=== PATIENT | female | born 1990 | race Two or more races ===

== ENCOUNTER 2020-01-09 07:00 | Inpatient (IN) | payer OTHER ==
[~2020-01-09] VITALS: Ht 167.6 cm; Wt 68.0 kg
== END 2020-01-19 17:39 | disposition home or self-care (01) | DRG 743 ==
LOC: SURH 01-16 07:00 → SURG-SUITE 01-16 11:00 → O/R 01-16 11:00 → SURG-SUITE 01-16 18:55
PROVIDERS: ADMIT Obstetrics & Gynecology; ATTEND Obstetrics & Gynecology
PROC: 0UB10ZZ Excision of Left Ovary, Open Approach (ICD-10-PCS; principal; 2020-01-16 09:30)
DX: D27.1 Benign neoplasm of left ovary (principal); K59.09 Other constipation

== ENCOUNTER 2020-09-11 10:02 | Outpatient (CLI) | payer OTHER | END 2020-09-11 10:07 | disposition home or self-care (01) | LOC: SONOGRAMA 10:02 → RX STUDY 10:45 | PROVIDERS: ATTEND Obstetrics & Gynecology | DX: N93.8 Other specified abnormal uterine and vaginal bleeding (principal) ==

== ENCOUNTER 2023-02-21 07:40 | Day surgery (SDC) | payer OTHER ==
[~2023-02-21] VITALS: Ht 170.2 cm; Wt 68.0 kg
[~2023-02-21 07:40] MED LIST: STELARA90 MG/1 ML
[2023-02-21] MEDS ORDERED: NEURONTIN300 MG PO (11:30)
[2023-02-21] MEDS ORDERED: TRAM1TAB98 PO (11:30)
== END 2023-02-21 15:40 | disposition home or self-care (01) ==
LOC: CIR.AMB 07:40
PROVIDERS: ATTEND Surgery
DX: K60.5 Anorectal fistula (principal); N82.3 Fistula of vagina to large intestine; Z88.0 Allergy status to penicillin; Z20.822 Contact with and (suspected) exposure to COVID-19; I10 Essential (primary) hypertension

== ENCOUNTER 2023-02-28 09:27 | Outpatient (CLI) | payer OTHER ==
[~2023-02-28 09:27] MED LIST changes: +NEURONTIN300 MG PO; +TRAM1TAB98 PO
== END 2023-02-28 09:40 | disposition home or self-care (01) ==
LOC: RX STUDY 09:27
PROVIDERS: ATTEND Surgery
DX: K50.114 Crohn's disease of large intestine with abscess (principal); K50.013 Crohn's disease of small intestine with fistula; N82.3 Fistula of vagina to large intestine

== ENCOUNTER 2024-05-02 06:15 | Day surgery (SDC) | payer OTHER ==
[2024-04-26 14:21] VITALS: BP 110/78
[~2024-05-02] VITALS: Ht 170.2 cm; Wt 77.1 kg
[2024-05-02] MEDS ORDERED: DIBUCAINE 30 GM TUBE ONE (07:15)
[2024-05-02] MEDS ORDERED: HEMOSTATIC MATRIX 1 KIT KIT TOP ONE (07:15)
[2024-05-02] MEDS ORDERED: POVIDONE-IODINE 118 ML BOTT TOP ONE (07:15)
[2024-05-02] MEDS ORDERED: BUPIVACAINE HCL/MPF 0.5% 30ML VIAL ONE (07:16)
[2024-05-02] MEDS ORDERED: METRONIDAZOLE/SODIUM CHLORIDE 500 MG/100 ML PIGGYBACK IV ONE (07:16)
[2024-05-02] MEDS ORDERED: LIDOCAINE HCL 1%/EPINEPHRINE 20ML VIAL IJ ONE (07:16)
[2024-05-02] MEDS ORDERED: CEFTRIAXONE SODIUM 2,000 MG VIAL ONE (07:16)
[2024-05-02] MEDS ORDERED: SUGAMMADEX SODIUM 200 MG/2 ML VIAL IV ONE (09:52)
[2024-05-02] MEDS ORDERED: NEURONTIN300 MG PO (11:24)
[2024-05-02] MEDS ORDERED: TRAM1TAB98 PO (11:24)
[2024-05-02] MEDS ORDERED: INTESTINEX680 M1 PO (11:24)
[2024-05-02] MEDS ORDERED: MORPHINE SULFATE 4 MG/ML VIAL IV ONE (12:10)
== END 2024-05-02 13:10 | disposition home or self-care (01) ==
LOC: CIR.AMB 06:15
PROVIDERS: ATTEND Surgery
DX: K60.30 Anal fistula, unspecified (principal); K60.50 Anorectal fistula, unspecified; K50.013 Crohn's disease of small intestine with fistula; K62.4 Stenosis of anus and rectum; N82.3 Fistula of vagina to large intestine; Z88.6 Allergy status to analgesic agent

== ENCOUNTER 2024-08-04 13:28 | Inpatient (IN) | payer OTHER ==
[~2024-08-04] VITALS: Ht 170.2 cm; Wt 72.6 kg
[~2024-08-04 13:28] MED LIST changes: +INTESTINEX680 M1 PO
--- NOTE | 2024-08-04 13:47 | NUR ---
SE RECIBE PTE ALERTA, ORIENTADA X3 Y AMBULANDO. PTE PRESENTA REFERIDO POR WILLIAM TIM PARA OBSERVACION POR ABCESO PERIANAL. PTE REFIERE JOSE DOLOR. SE MIDEN S/V Y SE UBICA.
[2024-08-04] MEDS ORDERED: PIPERACILLIN/TAZOBACTAM SODIUM 3.375 GM in 0.9 % SODIUM CHLORIDE 100 ML IV SCH (14:30)
[2024-08-04] MEDS ORDERED: MORPHINE SULFATE 4 MG/ML VIAL IV PRN (14:30)
[2024-08-04] MEDS ORDERED: ONDANSETRON HCL 2 MG/ML VIAL IV PRN (14:30)
[2024-08-04] MEDS ORDERED: RINGERS SOLUTION,LACTATED 1,000 ML IV SCH (14:30)
[2024-08-04] MEDS ORDERED: HYOSCYAMINE SULFATE 0.125 MG TAB.SUBL SL PRN (14:30)
[2024-08-04] MEDS ORDERED: PIPERACILLIN/TAZOBACTAM SODIUM 3.375 GM VIAL IV ONE (15:27)
[2024-08-04 15:30] LABS: BASO % 0.3 % (0.1-1.2); EOS # 0.02 (0.04-0.54); EOS % 0.2 % (0.7-7.0); LYMPH # 1.71 (1.18-3.74); LYMPH % 14.0 % (19.3-53.1); MEAN PLATELET VOLUME 10.70 fl (9.4-12.4); MONO # 0.84 (0.24-0.82); MONO % 6.9 % (4.7-12.5); NEUT # 9.56 (1.56-6.13); NEUT % 78.1 % (34.0-71.1); RED CELL DISTRIBUTION WIDTH 13.4 % (11.6-14.4)
[2024-08-04 15:45] LABS: INR 1.08
[2024-08-04 15:51] VITALS: BP 109/71; O2SAT 99
[2024-08-04 16:01] LABS: ALT/SGPT 10.0 U/L (12-78); AST/SGOT 8.0 U/L (15-37); BILIRUBIN TOTAL 0.53 mg/dL (0.3-1.2); BUN CREA RATIO 10.0 (7.0-25.0); CREATININE SERUM 0.62 mg/dL (0.55-1.02); GFR 109.54; GLOBULINA 4.4 G/DL (2.4-3.5); GLUCOSE FASTING 96.0 mg/dL (65-100); OSMOLALITY SERUM 275.0 MOSM/KG (275-295)
[2024-08-04] MEDS ORDERED: FOLIC ACID 1 MG TABLET PO NR (17:00)
[2024-08-04] MEDS ORDERED: Cyanocobalamin/Mecobalamin 1 TAB.SL SL NR (17:00)
[2024-08-04] MEDS ORDERED: SOD FERRIC GLUC COMPLX/SUCROSE 62.5 MG in 0.9 % SODIUM CHLORIDE 50 ML IV SCH (17:00)
[2024-08-04 20:00] VITALS: BP 109/70; O2SAT 97
[2024-08-04] MEDS ORDERED: ACETAMINOPHEN 500 MG GEL..CAP PO PRN (20:30)
[2024-08-04] MEDS ORDERED: CEFTRIAXONE SODIUM 2,000 MG VIAL ONE (23:57)
[2024-08-05] MEDS ORDERED: CEFTRIAXONE SODIUM 2,000 MG in 0.9 % SODIUM CHLORIDE 50 ML IV ONE
[2024-08-05 00:44] VITALS: BP 95/56; O2SAT 100
[2024-08-05] MEDS ORDERED: DIBUCAINE 30 GM TUBE ONE (06:55)
[2024-08-05] MEDS ORDERED: BUPIVACAINE HCL/MPF 0.5% 30ML VIAL ONE (06:55)
[2024-08-05] MEDS ORDERED: LIDOCAINE HCL 1%/EPINEPHRINE 20ML VIAL IJ ONE (06:56)
[2024-08-05] MEDS ORDERED: POVIDONE-IODINE 118 ML BOTT TOP ONE (06:56)
[2024-08-05] MEDS ORDERED: HEMOSTATIC MATRIX 1 KIT KIT TOP ONE (06:57)
[2024-08-05 08:29] VITALS: BP 90/60; O2SAT 96
[2024-08-05] MEDS ORDERED: Cyanocobalamin/Mecobalamin 1 TAB.SL SL SCH (09:00)
[2024-08-05] MEDS ORDERED: FOLIC ACID 1 MG TABLET PO SCH (09:00)
[2024-08-05] MEDS ORDERED: PANTOPRAZOLE SODIUM 40 MG/VIAL VIAL IV SCH (09:00)
[2024-08-05] MEDS ORDERED: PIPERACILLIN/TAZOBACTAM SODIUM 3.375 GM VIAL IV ONE (10:00)
[2024-08-05] MEDS ORDERED: HYDROGEN PEROXIDE 473 ML BOTTLE TOP ONE (10:15)
[2024-08-05] MEDS ORDERED: SUGAMMADEX SODIUM 200 MG/2 ML VIAL IV ONE (10:56)
[2024-08-05] MEDS ORDERED: OxyCODONE HCL 5 MG TABLET (ROXICODONE) PO PRN (12:15)
[2024-08-05] MEDS ORDERED: MORPHINE SULFATE 4 MG/ML CARTRIDGE IV PRN (12:15)
[2024-08-05] MEDS ORDERED: SIMETHICONE 125 MG CAPSULE PO SCH (13:00)
[2024-08-05 13:57] VITALS: BP 91/58; O2SAT 97
[2024-08-05 16:49] VITALS: BP 91/60; O2SAT 96
[2024-08-05] MEDS ORDERED: AA 4.25%/CAL/LYTES/DEXT 5% 1,000 ML PERIFERAL SCH (17:00)
[2024-08-05 18:30] VITALS: BP 84/51; O2SAT 98
[2024-08-05 21:01] LABS: BASO % 0.6 % (0.1-1.2); EOS # 0.14 (0.04-0.54); EOS % 1.0 % (0.7-7.0); LYMPH # 1.34 (1.18-3.74); LYMPH % 9.7 % (19.3-53.1); MEAN PLATELET VOLUME 10.20 fl (9.4-12.4); MONO # 0.84 (0.24-0.82); MONO % 6.1 % (4.7-12.5); NEUT # 11.36 (1.56-6.13); NEUT % 82.2 % (34.0-71.1); RED CELL DISTRIBUTION WIDTH 13.2 % (11.6-14.4)
[2024-08-05 21:48] LABS: BUN CREA RATIO 7.0 (7.0-25.0); CHOL HDL RATIO 2.5 (0-5.0); CREATININE SERUM 0.6 mg/dL (0.55-1.02); GFR 113.76; GLUCOSE FASTING 187.0 mg/dL (65-100); HDL 42.0 mg/dl (40-60); LDL 51.0 mg/dl (0-130); OSMOLALITY SERUM 277.0 MOSM/KG (275-295); VLDL 10.0 (0-39)
[2024-08-05 21:56] VITALS: BP 86/56; O2SAT 97
[2024-08-05] MEDS ORDERED: POTASSIUM CHLORIDE IN WATER 40 MEQ/100 ML PIGGYBAG IV ONE (22:18)
[2024-08-05] MEDS ORDERED: POTASSIUM CHLORIDE IN WATER 40 MEQ/100 ML PIGGYBAG IV SCH (22:19)
[2024-08-06] MEDS ORDERED: POTASSIUM CHLORIDE IN WATER 40 MEQ/100 ML PIGGYBAG IV ONE (00:06)
[2024-08-06 00:57] VITALS: BP 92/61; O2SAT 97
[2024-08-06 06:10] LABS: BASO % 0.5 % (0.1-1.2); EOS # 0.17 (0.04-0.54); EOS % 1.9 % (0.7-7.0); LYMPH # 1.38 (1.18-3.74); LYMPH % 15.1 % (19.3-53.1); MEAN PLATELET VOLUME 10.70 fl (9.4-12.4); MONO # 0.78 (0.24-0.82); MONO % 8.5 % (4.7-12.5); NEUT # 6.72 (1.56-6.13); NEUT % 73.6 % (34.0-71.1); RED CELL DISTRIBUTION WIDTH 13.4 % (11.6-14.4)
[2024-08-06 06:39] LABS: BUN CREA RATIO 16.0 (7.0-25.0); CREATININE SERUM 0.38 mg/dL (0.55-1.02); GFR 192.72; GLUCOSE FASTING 106.0 mg/dL (65-100); OSMOLALITY SERUM 279.0 MOSM/KG (275-295)
[2024-08-06 08:05] VITALS: BP 94/61; O2SAT 97
[2024-08-06] MEDS ORDERED: LACTOBACILLUS ACIDOPHILUS 1 CAP CAP PO SCH (09:00)
[2024-08-06 10:38] LABS: BUN CREA RATIO 12.0 (7.0-25.0); CREATININE SERUM 0.49 mg/dL (0.55-1.02); GFR 143.72; GLUCOSE FASTING 100.0 mg/dL (65-100); OSMOLALITY SERUM 286.0 MOSM/KG (275-295)
[2024-08-06 12:39] LABS: BASO % 0.5 % (0.1-1.2); EOS # 0.19 (0.04-0.54); EOS % 2.1 % (0.7-7.0); LYMPH # 1.26 (1.18-3.74); LYMPH % 13.7 % (19.3-53.1); MEAN PLATELET VOLUME 10.00 fl (9.4-12.4); MONO # 0.77 (0.24-0.82); MONO % 8.4 % (4.7-12.5); NEUT # 6.87 (1.56-6.13); NEUT % 74.4 % (34.0-71.1); RED CELL DISTRIBUTION WIDTH 13.4 % (11.6-14.4)
[2024-08-06 16:34] VITALS: BP 95/67
[2024-08-06] MEDS ORDERED: ENOXAPARIN SODIUM 40 MG/0.4 ML SYRINGE SUBCUTANEO SCH (17:00)
[2024-08-06] MEDS ORDERED: VANCOMYCIN HCL 1,000 MG VIAL IV SCH (21:00)
[2024-08-07] VITALS: BP 82/56; O2SAT 98
[2024-08-07 04:00] VITALS: BP 80/51; O2SAT 100
[2024-08-07] MEDS ORDERED: VANCOMYCIN HCL 1,000 MG VIAL ONE ×2 (07:40→15:40)
[2024-08-07 08:39] VITALS: BP 91/63; O2SAT 99
[2024-08-07] MEDS ORDERED: ENOXAPARIN SODIUM 40 MG/0.4 ML SYRINGE SUBCUTANEO SCH (09:00)
[2024-08-07 16:19] VITALS: BP 94/65; O2SAT 99
[2024-08-07] MEDS ORDERED: OxyCODONE HCL 5 MG TABLET (ROXICODONE) PO PRN (22:45)
[2024-08-08 00:21] VITALS: BP 108/54; O2SAT 100
[2024-08-08] MEDS ORDERED: VANCOMYCIN HCL 1,000 MG VIAL ONE ×2 (06:16→15:53)
[2024-08-08 08:30] VITALS: BP 96/65; O2SAT 99
[2024-08-08] MEDS ORDERED: THIAMINE HCL 100 MG/ML 2 ML VIAL IV SCH (09:00)
[2024-08-08] MEDS ORDERED: VANCOMYCIN HCL 5 MG/ML REDILUIDO IV SCH (21:00)
[2024-08-08 23:22] VITALS: BP 96/68; O2SAT 98
[2024-08-09 01:44] VITALS: BP 94/59; O2SAT 94
[2024-08-09 07:38] LABS: BASO % 0.6 % (0.1-1.2); EOS # 0.22 (0.04-0.54); EOS % 2.6 % (0.7-7.0); LYMPH # 1.78 (1.18-3.74); LYMPH % 21.3 % (19.3-53.1); MEAN PLATELET VOLUME 10.20 fl (9.4-12.4); MONO # 0.74 (0.24-0.82); MONO % 8.9 % (4.7-12.5); NEUT # 5.49 (1.56-6.13); NEUT % 65.8 % (34.0-71.1); RED CELL DISTRIBUTION WIDTH 13.7 % (11.6-14.4)
[2024-08-09 08:06] LABS: BUN CREA RATIO 31.0 (7.0-25.0); CREATININE SERUM 0.39 mg/dL (0.55-1.02); GFR 187.02; GLUCOSE FASTING 83.0 mg/dL (65-100); OSMOLALITY SERUM 289.0 MOSM/KG (275-295)
[2024-08-09 09:22] VITALS: BP 113/79; O2SAT 96
[2024-08-09 16:15] VITALS: BP 113/77; O2SAT 95
[2024-08-10 01:03] VITALS: BP 94/63; O2SAT 96
[2024-08-10 08:31] VITALS: BP 94/60; O2SAT 98
[2024-08-11 07:30] VITALS: BP 93/60; O2SAT 97
[2024-08-11 16:00] VITALS: BP 95/62; O2SAT 96
[2024-08-11 17:22] LABS: BASO % 0.6 % (0.1-1.2); EOS # 0.22 (0.04-0.54); EOS % 2.3 % (0.7-7.0); LYMPH # 1.88 (1.18-3.74); LYMPH % 19.8 % (19.3-53.1); MEAN PLATELET VOLUME 9.80 fl (9.4-12.4); MONO # 0.63 (0.24-0.82); MONO % 6.6 % (4.7-12.5); NEUT # 6.61 (1.56-6.13); NEUT % 69.9 % (34.0-71.1); RED CELL DISTRIBUTION WIDTH 13.8 % (11.6-14.4)
[2024-08-12] VITALS: BP 93/61; O2SAT 98
[2024-08-12 08:00] VITALS: BP 85/58; O2SAT 97
[2024-08-12 09:27] LABS: INR 1.0
[2024-08-12 16:00] VITALS: BP 97/64; O2SAT 100
[2024-08-13 01:16] VITALS: BP 97/63; O2SAT 98
[2024-08-13 06:32] LABS: INR 1.0
[2024-08-13 06:39] LABS: BASO % 0.5 % (0.1-1.2); EOS # 0.24 (0.04-0.54); EOS % 3.0 % (0.7-7.0); LYMPH # 1.66 (1.18-3.74); LYMPH % 20.6 % (19.3-53.1); MEAN PLATELET VOLUME 10.00 fl (9.4-12.4); MONO # 0.69 (0.24-0.82); MONO % 8.6 % (4.7-12.5); NEUT # 5.34 (1.56-6.13); NEUT % 66.1 % (34.0-71.1); RED CELL DISTRIBUTION WIDTH 14.1 % (11.6-14.4)
[2024-08-13 06:47] LABS: ALT/SGPT 21 U/L (12-78); AST/SGOT 10 U/L (15-37); BILIRUBIN TOTAL 0.32 mg/dL (0.3-1.2); BILIRUBIN,CONJUGATED < 0.10 mg/dL (0.0-0.2); BUN CREA RATIO 33 (7.0-25.0); CREATININE SERUM 0.57 mg/dL (0.55-1.02); GFR 120.70; GLOBULINA 4.5 G/DL (2.4-3.5); GLUCOSE FASTING 100 mg/dL (65-100); OSMOLALITY SERUM 285 MOSM/KG (275-295)
[2024-08-13 08:00] VITALS: BP 101/68; O2SAT 99
[2024-08-13 08:32] LABS: UREA CLEARANCE 54.7 ML/MIN
[2024-08-13 16:17] VITALS: BP 105/70; O2SAT 97
[2024-08-13] MEDS ORDERED: CEFTRIAXONE SODIUM 2,000 MG VIAL IV ONE (23:15)
[2024-08-13] MEDS ORDERED: METRONIDAZOLE/SODIUM CHLORIDE 500 MG/100 ML PIGGYBACK IV ONE (23:15)
[2024-08-13] MEDS ORDERED: MORPHINE SULFATE 4 MG/ML CARTRIDGE IV PRN (23:45)
[2024-08-13] MEDS ORDERED: ONDANSETRON HCL 2 MG/ML VIAL IV PRN (23:45)
[2024-08-13] MEDS ORDERED: OxyCODONE HCL 5 MG TABLET (ROXICODONE) PO PRN (23:45)
[2024-08-14] MEDS ORDERED: MORPHINE SULFATE 4 MG/ML VIAL IV ONE ×2 (00:30)
[2024-08-14] MEDS ORDERED: GABAPENTIN 300 MG CAPSULE PO SCH (01:00)
[2024-08-14] MEDS ORDERED: ACETAMINOPHEN 500 MG GEL..CAP PO SCH (02:00)
[2024-08-14 07:14] LABS: BASO % 0.4 % (0.1-1.2); EOS # 0.15 (0.04-0.54); EOS % 1.5 % (0.7-7.0); LYMPH # 1.39 (1.18-3.74); LYMPH % 14.1 % (19.3-53.1); MEAN PLATELET VOLUME 10.50 fl (9.4-12.4); MONO # 0.59 (0.24-0.82); MONO % 6.0 % (4.7-12.5); NEUT # 7.64 (1.56-6.13); NEUT % 77.3 % (34.0-71.1); RED CELL DISTRIBUTION WIDTH 14.1 % (11.6-14.4)
[2024-08-14 08:00] VITALS: BP 91/62; O2SAT 97
[2024-08-14 08:05] LABS: BUN CREA RATIO 24.0 (7.0-25.0); CREATININE SERUM 0.59 mg/dL (0.55-1.02); GFR 115.99; GLUCOSE FASTING 90.0 mg/dL (65-100); OSMOLALITY SERUM 283.0 MOSM/KG (275-295)
[2024-08-14] MEDS ORDERED: HYOSCYAMINE SULFATE 0.125 MG TAB.SUBL SL SCH (09:00)
[2024-08-14 15:12] VITALS: BP 103/57; O2SAT 98
[2024-08-14] MEDS ORDERED: ENOXAPARIN SODIUM 40 MG/0.4 ML SYRINGE SUBCUTANEO SCH (17:00)
[2024-08-14 22:34] VITALS: BP 100/67
[2024-08-15 01:13] VITALS: BP 103/69; O2SAT 96
[2024-08-15 08:00] VITALS: BP 92/59; O2SAT 99
[2024-08-15] MEDS ORDERED: NEURONTIN300 MG PO (08:49)
[2024-08-15] MEDS ORDERED: AMOX-CLAV 875-1 EACH PO (08:50)
[2024-08-15] MEDS ORDERED: PROTONIX40 MG PO (08:50)
[2024-08-15] MEDS ORDERED: ENOXAPARIN SODIUM 40 MG/0.4 ML SYRINGE SUBCUTANEO SCH (09:00)
[2024-08-15] MEDS ORDERED: METRONIDAZOLE500 MG PO (09:53)
== END 2024-08-15 16:30 | DRG 982 ==
LOC: ER 13:39 → SURG 15:58
PROVIDERS: Internal Medicine; Surgery; ADMIT Internal Medicine Geriatric Medicine; ATTEND Internal Medicine Geriatric Medicine
PROC: 0J9B30Z Drainage of Perineum Subcutaneous Tissue and Fascia with Drainage Device, Percutaneous Approach (ICD-10-PCS; 2024-08-05)
PROC: 0D9Q30Z Drainage of Anus with Drainage Device, Percutaneous Approach (ICD-10-PCS; 2024-08-05)
PROC: 3E0T3BZ Introduction of Anesthetic Agent into Peripheral Nerves and Plexi, Percutaneous Approach (ICD-10-PCS; 2024-08-05)
PROC: 02HV33Z Insertion of Infusion Device into Superior Vena Cava, Percutaneous Approach (ICD-10-PCS; 2024-08-07)
PROC: 30243N1 Transfusion of Nonautologous Red Blood Cells into Central Vein, Percutaneous Approach (ICD-10-PCS; 2024-08-09)
PROC: 0D1B4Z4 Bypass Ileum to Cutaneous, Percutaneous Endoscopic Approach (ICD-10-PCS; principal; 2024-08-13 17:00)
DX: L02.215 Cutaneous abscess of perineum (principal); K50.813 Crohn's disease of both small and large intestine with fistula; D72.829 Elevated white blood cell count, unspecified; K60.30 Anal fistula, unspecified; D64.9 Anemia, unspecified; F43.20 Adjustment disorder, unspecified

== ENCOUNTER 2024-09-27 00:41 | Inpatient (IN) | payer OTHER ==
[~2024-09-27] VITALS: Ht 170.2 cm; Wt 72.6 kg
[~2024-09-27 00:41] MED LIST changes: +AMOX-CLAV 875-1 EACH PO; +METRONIDAZOLE500 MG PO; +PROTONIX40 MG PO
[2024-09-27] MEDS ORDERED: 0.9 % SODIUM CHLORIDE 1,000 ML IV ONE (02:45)
[2024-09-27 02:56] LABS: BASO % 0.6 % (0.1-1.2); EOS # 0.22 (0.04-0.54); EOS % 2.7 % (0.7-7.0); LYMPH # 2.32 (1.18-3.74); LYMPH % 28.4 % (19.3-53.1); MEAN PLATELET VOLUME 10.70 fl (9.4-12.4); MONO # 0.57 (0.24-0.82); MONO % 7.0 % (4.7-12.5); NEUT # 4.98 (1.56-6.13); NEUT % 61.1 % (34.0-71.1); RED CELL DISTRIBUTION WIDTH 14.8 % (11.6-14.4)
[2024-09-27] MEDS ORDERED: METRONIDAZOLE/SODIUM CHLORIDE 500 MG/100 ML PIGGYBACK IV STA (03:05)
[2024-09-27] MEDS ORDERED: CIPROFLOXACIN IN 5 % DEXTROSE 400 MG/200 ML PIGGYBAG IV STA (03:05)
[2024-09-27 03:23] LABS: INR 0.95
[2024-09-27 03:27] LABS: ALT/SGPT 16.0 U/L (12-78); AST/SGOT 11.0 U/L (15-37); BILIRUBIN TOTAL 0.34 mg/dL (0.3-1.2); BUN CREA RATIO 37.0 (7.0-25.0); CREATININE SERUM 0.6 mg/dL (0.55-1.02); GFR 113.76; GLOBULINA 4.3 G/DL (2.4-3.5); GLUCOSE FASTING 99.0 mg/dL (65-100); OSMOLALITY SERUM 286.0 MOSM/KG (275-295)
[2024-09-27 07:15] LABS: URINE APPEARANCE Clear; URINE BILIRRUBIN Negative (NEGATIVE); URINE BLOOD Negative; URINE COLOR Yellow; URINE GLUCOSE Negative (NEGATIVE); URINE KETONE Negative (NEGATIVE); URINE LEUKOCYTE Trace; URINE NITRATE Negative; URINE PROTEIN Negative (NEGATIVE); URINE UROBILINOGEN 0.2 E.U./dl
[2024-09-27 07:18] LABS: URINE BACTERIA 32.3 uL (0.0-1933); URINE EPITHELIAL CELLS 4.9 uL (0.0-38.8); URINE RBC 17.3 uL (0.0-20.8); URINE WBC 6.6 uL (0.0-23.2)
[2024-09-27 07:21] LABS: URINE CAST 0.00 uL (0.0-1.40)
[2024-09-27] MEDS ORDERED: OxyCODONE HCL 5 MG TABLET (ROXICODONE) PO PRN (08:00)
[2024-09-27] MEDS ORDERED: ONDANSETRON HCL 2 MG/ML VIAL IV PRN (08:00)
[2024-09-27] MEDS ORDERED: MORPHINE SULFATE 4 MG/ML CARTRIDGE IV PRN (08:00)
[2024-09-27] MEDS ORDERED: 0.9 % SODIUM CHLORIDE 1,000 ML IV SCH (08:00)
[2024-09-27] MEDS ORDERED: ACETAMINOPHEN 500 MG GEL..CAP PO SCH (08:00)
[2024-09-27 08:36] VITALS: BP 90/68
[2024-09-27] MEDS ORDERED: CIPROFLOXACIN IN 5 % DEXTROSE 400 MG/200 ML PIGGYBAG IV SCH (09:00)
[2024-09-27] MEDS ORDERED: FAMOTIDINE/PF 20 MG/2 ML VIAL IV PUSH SCH (09:00)
[2024-09-27] MEDS ORDERED: METRONIDAZOLE/SODIUM CHLORIDE 500 MG/100 ML PIGGYBACK IV SCH (09:00)
[2024-09-27] MEDS ORDERED: LACTOBACILLUS ACIDOPHILUS 1 CAP CAP PO SCH (09:00)
[2024-09-27 16:00] VITALS: BP 93/61; O2SAT 98
[2024-09-27] MEDS ORDERED: VANCOMYCIN HCL 1,000 MG VIAL IV SCH (18:12)
[2024-09-28] MEDS ORDERED: PIPERACILLIN/TAZOBACTAM SODIUM 3.375 GM in DEXTROSE 5 % IN WATER 100 ML IV SCH
[2024-09-28 02:06] VITALS: BP 100/52; O2SAT 100
[2024-09-28 07:09] LABS: BASO % 1.0 % (0.1-1.2); EOS # 0.27 (0.04-0.54); EOS % 4.5 % (0.7-7.0); LYMPH # 1.53 (1.18-3.74); LYMPH % 25.6 % (19.3-53.1); MEAN PLATELET VOLUME 11.10 fl (9.4-12.4); MONO # 0.46 (0.24-0.82); MONO % 7.7 % (4.7-12.5); NEUT # 3.64 (1.56-6.13); NEUT % 60.9 % (34.0-71.1); RED CELL DISTRIBUTION WIDTH 14.8 % (11.6-14.4)
[2024-09-28 07:40] LABS: BUN CREA RATIO 18.0 (7.0-25.0); CREATININE SERUM 0.62 mg/dL (0.55-1.02); GFR 109.54; GLUCOSE FASTING 89.0 mg/dL (65-100); OSMOLALITY SERUM 284.0 MOSM/KG (275-295)
[2024-09-28 08:00] VITALS: BP 137/82; O2SAT 98
[2024-09-28] MEDS ORDERED: LOPERAMIDE HCL 2 MG CAPSULE PO SCH ×2 (08:48→11:00)
[2024-09-29 01:17] VITALS: BP 96/57; O2SAT 100
[2024-09-29 08:00] VITALS: BP 96/65; O2SAT 100
[2024-09-29] MEDS ORDERED: ENOXAPARIN SODIUM 40 MG/0.4 ML SYRINGE SUBCUTANEO SCH (09:00)
[2024-09-29 16:00] VITALS: BP 106/71; O2SAT 98
[2024-09-29] MEDS ORDERED: FLUCONAZOLE IN NACL,ISO-OSM 200 MG/100 ML PIGGYBAG IV SCH (17:00)
[2024-09-30 01:10] VITALS: BP 78/55; O2SAT 98
[2024-09-30 08:00] VITALS: BP 101/62; O2SAT 98
[2024-09-30 16:00] VITALS: BP 95/66; O2SAT 100
[2024-09-30] MEDS ORDERED: FLUCONAZOLE IN NACL,ISO-OSM 2 MG/ML ML IV SCH (17:00)
[2024-10-01 00:50] VITALS: BP 110/67; O2SAT 97
[2024-10-01 07:10] LABS: BASO % 1.0 % (0.1-1.2); EOS # 0.25 (0.04-0.54); EOS % 4.3 % (0.7-7.0); LYMPH # 1.85 (1.18-3.74); LYMPH % 31.6 % (19.3-53.1); MEAN PLATELET VOLUME 11.40 fl (9.4-12.4); MONO # 0.48 (0.24-0.82); MONO % 8.2 % (4.7-12.5); NEUT # 3.22 (1.56-6.13); NEUT % 54.9 % (34.0-71.1); RED CELL DISTRIBUTION WIDTH 15.0 % (11.6-14.4)
[2024-10-01 09:07] LABS: ALT/SGPT 11.0 U/L (12-78); AST/SGOT 8.0 U/L (15-37); BILIRUBIN TOTAL 0.3 mg/dL (0.3-1.2); BUN CREA RATIO 14.0 (7.0-25.0); CREATININE SERUM 0.73 mg/dL (0.55-1.02); GFR 90.72; GLOBULINA 3.4 G/DL (2.4-3.5); GLUCOSE FASTING 80.0 mg/dL (65-100); OSMOLALITY SERUM 285.0 MOSM/KG (275-295)
[2024-10-01 09:38] VITALS: BP 100/70; O2SAT 100
[2024-10-01 16:00] VITALS: BP 103/64; O2SAT 100
[2024-10-01] MEDS ORDERED: AMPICILLIN SODIUM/SULBACTAM NA 3,000 MG in 0.9 % SODIUM CHLORIDE 100 ML IV SCH (18:00)
[2024-10-02 01:49] VITALS: BP 108/71; O2SAT 100
[2024-10-02] MEDS ORDERED: NA PHOS,M-B/NA PHOS,DI-BA 1 BOTTLE ENEMA RECTAL NR (06:00)
[2024-10-02 08:00] VITALS: BP 96/67; O2SAT 97
[2024-10-02] MEDS ORDERED: fentaNYL CITRATE 50 MCG/ML AMPUL IV NR (13:30)
[2024-10-02] MEDS ORDERED: MIDAZOLAM HCL 2 MG/2 ML VIAL IV NR (13:30)
[2024-10-02] MEDS ORDERED: DIPHENHYDRAMINE HCL 50 MG/ML VIAL 1ML IV NR (13:30)
[2024-10-02 16:00] VITALS: BP 90/58; O2SAT 98
[2024-10-03 00:50] VITALS: BP 98/73; O2SAT 100
[2024-10-03 10:11] VITALS: BP 98/67; O2SAT 99
[2024-10-03] MEDS ORDERED: BUPIVACAINE HCL 30 ML VIAL IJ ONE (13:45)
[2024-10-03] MEDS ORDERED: CHLORHEXIDINE GLUCONATE 120 ML BOTTLE TOP ONE (14:00)
[2024-10-03] MEDS ORDERED: LIDOCAINE HCL 1%/EPINEPHRINE 20ML VIAL IJ ONE (14:00)
[2024-10-03] MEDS ORDERED: OxyCODONE HCL 5 MG TABLET (ROXICODONE) PO PRN (16:00)
[2024-10-03] MEDS ORDERED: MORPHINE SULFATE 4 MG/ML CARTRIDGE IV PRN (16:00)
[2024-10-03] MEDS ORDERED: SUGAMMADEX SODIUM 200 MG/2 ML VIAL IV ONE (16:45)
[2024-10-03] MEDS ORDERED: MORPHINE SULFATE 4 MG/ML VIAL IV ONE ×2 (16:50→17:50)
[2024-10-03] MEDS ORDERED: GABAPENTIN 300 MG CAPSULE PO SCH (17:00)
[2024-10-03] MEDS ORDERED: HYOSCYAMINE SULFATE 0.125 MG TAB.SUBL SL SCH (17:00)
[2024-10-03] MEDS ORDERED: METOCLOPRAMIDE HCL 5 MG/ML VIAL IV SCH (17:00)
[2024-10-03 18:50] LABS: BASO % 0.2 % (0.1-1.2); EOS # 0.01 (0.04-0.54); EOS % 0.1 % (0.7-7.0); LYMPH # 0.59 (1.18-3.74); LYMPH % 5.6 % (19.3-53.1); MEAN PLATELET VOLUME 10.70 fl (9.4-12.4); MONO # 0.17 (0.24-0.82); MONO % 1.6 % (4.7-12.5); NEUT # 9.68 (1.56-6.13); NEUT % 92.2 % (34.0-71.1); RED CELL DISTRIBUTION WIDTH 14.5 % (11.6-14.4)
[2024-10-03 19:05] VITALS: BP 96/58; O2SAT 98
[2024-10-03 19:26] LABS: BUN CREA RATIO 13.0 (7.0-25.0); CREATININE SERUM 0.54 mg/dL (0.55-1.02); GFR 128.47; GLUCOSE FASTING 108.0 mg/dL (65-100); OSMOLALITY SERUM 278.0 MOSM/KG (275-295)
[2024-10-04 01:57] VITALS: BP 103/61; O2SAT 100
[2024-10-04 06:16] LABS: BASO % 0.5 % (0.1-1.2); EOS # 0.10 (0.04-0.54); EOS % 1.1 % (0.7-7.0); LYMPH # 1.53 (1.18-3.74); LYMPH % 17.3 % (19.3-53.1); MEAN PLATELET VOLUME 10.90 fl (9.4-12.4); MONO # 0.61 (0.24-0.82); MONO % 6.9 % (4.7-12.5); NEUT # 6.53 (1.56-6.13); NEUT % 74.0 % (34.0-71.1); RED CELL DISTRIBUTION WIDTH 14.6 % (11.6-14.4)
[2024-10-04 06:56] LABS: BUN CREA RATIO 11.0 (7.0-25.0); CREATININE SERUM 0.54 mg/dL (0.55-1.02); GFR 128.47; GLUCOSE FASTING 92.0 mg/dL (65-100); OSMOLALITY SERUM 279.0 MOSM/KG (275-295)
[2024-10-04 08:00] VITALS: BP 91/60; O2SAT 96
[2024-10-04 16:00] VITALS: BP 96/57; O2SAT 98
[2024-10-05 00:53] VITALS: BP 100/62; O2SAT 98
[2024-10-05 06:48] LABS: BASO % 0.5 % (0.1-1.2); EOS # 0.34 (0.04-0.54); EOS % 4.6 % (0.7-7.0); LYMPH # 1.72 (1.18-3.74); LYMPH % 23.4 % (19.3-53.1); MEAN PLATELET VOLUME 10.80 fl (9.4-12.4); MONO # 0.51 (0.24-0.82); MONO % 6.9 % (4.7-12.5); NEUT # 4.73 (1.56-6.13); NEUT % 64.3 % (34.0-71.1); RED CELL DISTRIBUTION WIDTH 14.5 % (11.6-14.4)
[2024-10-05 07:17] LABS: BUN CREA RATIO 9.0 (7.0-25.0); CREATININE SERUM 0.43 mg/dL (0.55-1.02); GFR 167.1; GLUCOSE FASTING 95.0 mg/dL (65-100); OSMOLALITY SERUM 280.0 MOSM/KG (275-295)
[2024-10-05 08:00] VITALS: BP 100/65; O2SAT 98
[2024-10-05] MEDS ORDERED: KETOROLAC TROMETHAMINE 30 MG VIAL IV PRN (13:30)
[2024-10-05 17:07] VITALS: BP 94/62; O2SAT 96
[2024-10-06 01:26] VITALS: BP 104/70; O2SAT 100
[2024-10-06 08:00] VITALS: BP 97/66; O2SAT 97
[2024-10-06] MEDS ORDERED: AMOX-CLAV 875-1 EACH PO (11:33)
[2024-10-06] MEDS ORDERED: FLUCONAZOLE100 MG PO (11:34)
[2024-10-06] MEDS ORDERED: METRONIDAZOLE500 MG PO (11:34)
== END 2024-10-06 13:21 | disposition home or self-care (01) | DRG 330 ==
LOC: ER 01:51 → SURH 08:07 → SEC-K 08:07 → SURH 11:51
PROVIDERS: General Practice; Internal Medicine; Internal Medicine Geriatric Medicine; ADMIT Surgery; ATTEND Surgery
PROC: BW21YZZ Computerized Tomography (CT Scan) of Abdomen and Pelvis using Other Contrast (ICD-10-PCS; 2024-09-27)
PROC: BW3GYZZ Magnetic Resonance Imaging (MRI) of Pelvic Region using Other Contrast (ICD-10-PCS; 2024-09-29)
PROC: BW3GZZZ Magnetic Resonance Imaging (MRI) of Pelvic Region (ICD-10-PCS; 2024-09-29)
PROC: 0DBB8ZX Excision of Ileum, Via Natural or Artificial Opening Endoscopic, Diagnostic (ICD-10-PCS; 2024-10-01)
PROC: 0DBB4ZZ Excision of Ileum, Percutaneous Endoscopic Approach (ICD-10-PCS; 2024-10-03)
PROC: 0DJD8ZZ Inspection of Lower Intestinal Tract, Via Natural or Artificial Opening Endoscopic (ICD-10-PCS; 2024-10-03)
PROC: 0DBB4ZX Excision of Ileum, Percutaneous Endoscopic Approach, Diagnostic (ICD-10-PCS; 2024-10-03)
PROC: 0D1B4Z4 Bypass Ileum to Cutaneous, Percutaneous Endoscopic Approach (ICD-10-PCS; principal; 2024-10-03 13:45)
DX: K94.13 Enterostomy malfunction (principal); K50.813 Crohn's disease of both small and large intestine with fistula; K91.30 Postprocedural intestinal obstruction, unspecified as to partial versus complete; N82.4 Other female intestinal-genital tract fistulae; K50.90 Crohn's disease, unspecified, without complications; L03.311 Cellulitis of abdominal wall; K94.19 Other complications of enterostomy; N73.9 Female pelvic inflammatory disease, unspecified; F43.20 Adjustment disorder, unspecified; K60.30 Anal fistula, unspecified; B95.2 Enterococcus as the cause of diseases classified elsewhere; B96.20 Unspecified Escherichia coli [E. coli] as the cause of diseases classified elsewhere; B96.1 Klebsiella pneumoniae [K. pneumoniae] as the cause of diseases classified elsewhere; B96.89 Other specified bacterial agents as the cause of diseases classified elsewhere
CPT/HCPCS: 72198